=== PATIENT | female | born 1960 | race Caucasian/White ===

== ENCOUNTER 2016-06-04 16:28 | Emergency (ER) | payer MEDICARE, OTHER ==
--- NOTE | 2016-06-04 16:41 | ED Physician Documentation ---
General Adult - HISTORIAN Historian: patient - HPI Stated Complaint: feeding tube came out Chief Complaint: General Adult Onset: minutes Timing: still present Severity: mild Further Comments: yes (Pt is a 55 yo female) - ROS CONST: no problems EYES/ENT: none CVS/RESP: none GI/: other (feeding tube displaced) MS/SKIN/LYMPH: none - PAST HX Past History: other (depression/anxiety; bowel obstruction.) Surgeries/Procedures: other (L femor fx repair; gastric bypass; hysterectomy; feeding tube placement.) Allergies/Adverse Reactions: Allergies Allergy/AdvReac Type Severity Reaction Status Date / Time cefaclor [From Ceclor] Allergy Severe Hives Verified 02/06/13 09:08 Home Medications: Ambulatory Orders Medication Instructions Recorded Pnv95/Ferrous Fumarate/FA 1 each PO DAILY 04/19/12 [ Multivitamins Tablet] - SOCIAL HX Smoking History: cigarettes - FAMILY HX Family History: No - VITAL SIGNS Vital Signs: Vital Signs Temp Pulse Resp BP Pulse Ox 122/86 09/11/15 10:12 - REVIEWED ASSESSMENTS Nursing Assessment Reviewed: Yes Vitals Reviewed: Yes Progress - Progress Progress: feeding tube easily replaced. internal balloon may have been underinflated. General Adult Physical Exam - PHYSICAL EXAM GENERAL APPEARANCE: cachectic EENT: pharynx normal NECK: normal inspection, supple RESPIRATORY: no resp distress CVS: reg rate & rhythm, heart sounds normal ABDOMEN: soft, other (feeding tube) BACK: normal inspection SKIN: warm/dry, normal color EXTREMITIES: non-tender, normal range of motion, no evidence of injury NEURO: oriented X3, motor nml, sensation nml Discharge Clincal Impression: feeding tube displacement, resolved Referrals: Venu Atkinson MD [Primary Care Provider] - Home Medications: Ambulatory Orders Pnv95/Ferrous Fumarate/FA [ Multivitamins Tablet] 1 each PO DAILY Condition: Good Disposition: 04 XFER [facility] Decision to Admit: NO Decision Time: 16:51
[2016-06-04 16:43] VITALS: BP 110/67
== END 2016-06-04 16:45 ==
LOC: ED 16:28
DX: T85.528A Displacement of other gastrointestinal prosthetic devices, implants and grafts, initial encounter (principal); X58.XXXA Exposure to other specified factors, initial encounter; Y93.9 Activity, unspecified; Y99.9 Unspecified external cause status
CPT/HCPCS: 99284

== ENCOUNTER 2017-06-29 15:40 | Outpatient (CLI) | payer OTHER ==
--- NOTE | 2017-06-29 18:20 | Diagnostic Imaging Report ---
SABINA MCNEIL [facility] [address] [facility] [address] [place] [address]. [phone] Report Submission Date: June 29, 2017 4:20:37 PM CDT Patient Study Name: ELEANOR ZAMORA Date: June 29, 2017 3:51:00 PM CDT Modality Type: DX Gender: F Description: PELVIS : 62 Institution: [facility] Physician: SABINA MCNEIL Examination: Plain film pelvis/left hip History: PT C/O LEFT HIP PAIN THAT RADIATES INTO THE LEFT LEG AFTER FALL X 2 MONTHS. PT STATES THAT SHE EXPERIENCES LEFT LEG NUMBNESS AND "TINGLE" SENSATION. PT HAD SURGERY ON HER LEFT HIP 4 MONTHS AGO. (Hx) Comparison exams: None provided Findings: 3 views of the pelvis and left hip demonstrates left hip fixation pinning. Advanced hip articular degenerative changes, left greater than right. No displaced fracture line. Pubic symphysis and lumbar spine degenerative changes. Pelvic phleboliths. Impression: Advanced, left greater than right, hip articular degenerative changes. Left hip fixation pinning. No evidence for displaced fracture. Electronically signed on June 29, 2017 4:20:37 PM CDT by: Brock QUISPE
== END 2017-06-29 15:42 ==
LOC: RAD 15:40
PROVIDERS: ATTEND Family Medicine
DX: M25.552 Pain in left hip (principal)

== ENCOUNTER 2017-08-23 08:02 | Outpatient (CLI) | payer OTHER ==
[2017-08-23] MEDS ORDERED: Lidocaine 1% 5ml(IM or SUTURE)(PAIN CLINIC) ONE (10:15)
[2017-08-23] MEDS ORDERED: TRIAMCINOLONE ACETONID 40MG/ML VIAL ONE (10:15)
[2017-08-23] MEDS ORDERED: BUPIVACAINE HCL/PF 2.5 MG/ML 10ML VIAL IV ONE (10:15)
--- NOTE | 2017-08-26 13:49 | GREATER THROCHANTERIC BURSA IN ---
SUBJECTIVE: I had the opportunity of following up with Livia Miles. This is a very nice 56-year-old white female who I have treated for back pain in the past. She has had some medical problems and now has had an abdominal surgery and now has a PEG tube in place and has had some physical decline. She presents today with her with a chief complaint of left hip pain. She had apparently left hip pinning done for a fracture following a fall about 4 years ago and has had left hip pain ever since. Most recently, the pain has become so severe, she cannot walk. An x-ray image reveals relatively severe osteoarthritis and she says the pain is just lateral over the hip. She cannot lay on that side at night. She has a Tinel's sign. I examine her and she does have a positive VITA but the majority of the symptoms appear to be over the left trochanteric bursa in the area of the hip pinning. X-ray images reveal 3 screws at the greater trochanter and into the femoral neck and into the femoral head. At this point, I am going to place a diagnostic/therapeutic left greater trochanteric bursa injection; and if her symptoms are not improved, we could consider a diagnostic hip joint block. I think ultimately if this were the case , she would require a hip arthroplasty; however, her overall physical condition would be problematic. PROCEDURE: Left greater trochanteric bursa injection with fluoroscopy. DESCRIPTION OF PROCEDURE: The risks and benefits of the procedure were discussed with the patient, including the risk of infection, bleeding, nerve injury. Furthermore, I discussed the risk of steroid exposure causing hyperglycemia, hypertension, osteoporosis, or increased infectious risks. The patient understood the risks and agreed to proceed. Consent was obtained. The patient was positioned positioned prone on the fluoroscopic procedure table and sterile prep and drape were applied. Under AP fluoroscopic imaging, the hip was identified and a Tinel's sign was noted over the screws of the femoral neck; and at this point, a needle was advanced under fluoroscopic guidance with an injection of medication. The needle was removed. This did appear to re- create the patient's symptoms. She otherwise tolerated the procedure well. There were no apparent complications. The patient was monitored for 20 minutes following the procedure, during which time the patient experienced no adverse sequelae. The patient was discharged to home in good condition with a class a truck driver driving the pt. home. ASSESSMENT: 1. Left trochanteric bursitis status post hip pinning and hardware pinning. 2. History of thoracic and lumbar spondylosis. PLAN: Left greater trochanteric bursa injection with fluoroscopy today. FOLLOW UP: Return to clinic if problems develop or worsen. cc: Dr. Venu QUISPE
== END 2017-08-23 08:03 ==
LOC: OUT 08:02
PROVIDERS: ATTEND Anesthesiology Pain Medicine
DX: M70.62 Trochanteric bursitis, left hip (principal); Y93.9 Activity, unspecified
CPT/HCPCS: J3301; J3490; Q9966; 20611; 99213; G0463

== ENCOUNTER 2017-09-26 13:08 | Emergency (ER) | payer OTHER ==
--- NOTE | 2017-09-26 14:15 | ED Physician Documentation ---
Hip Injury/Pain - HPI Stated Complaint: Left hip pain Chief Complaint: Hip Pain Onset: days ago Severity: severe Duration: worse Context: no injury Further Comments: yes (56 year old female patient presents with complaint of left hip pain. Patient denies falling, reports tripping and landing on the couch twice this past week. Patient reports having "injection" with Dr Hutton a few weeks ago with no improvement.) - ROS CONST: recent illness (chronic illness) RESP: denies: shortness of breath, cough non-productive, cough-productive GI/: none EYES/ENT: none MS/SKIN/LYMPH: other (left hip pain; chronic) NEURO/PSYCH: denies: confusion, anxiety, depression - PAST HX Cardiac Disease: none PE Risk Factors: none Other History: other (anxiety; depression, low BMI, chronic left hip pain, gastric ulcer; umbilical hernia) Surgeries/Procedures: other (bariatric surgery; peg tube placement.) Allergies/Adverse Reactions: Allergies Allergy/AdvReac Type Severity Reaction Status Date / Time cefaclor [From Ceclor] Allergy Severe Hives Verified 09/26/17 13:47 - SOCIAL HX Smoking History: cigarettes - FAMILY HX Family History: No - VITAL SIGNS Vital Signs: Vital Signs Temp Pulse Resp BP Pulse Ox 98.6 F 84 16 94/52 96 09/26/17 15:00 09/26/17 15:00 09/26/17 15:00 09/26/17 15:00 09/26/17 15:00 - REVIEWED ASSESSMENTS Nursing Assessment Reviewed: Yes Vitals Reviewed: Yes Progress - Progress Progress: Med review concerning - patient has stopped flexeril, gabapentin, senna, zofran , naproxen, ativan, lasix, and flonase since being discharged from the senior living back in March 2017. concerned patient is suppose to be on gabapentin but not taking her meds correctly. Follow up appointment made with Dr Atkinson 10/03 at 1100. Instructed patient to take medications to office for visit. Reviewed Dr Hutton note from 08/23/17 - appointment made for 10/11/17 at 1200 for re-evaluation. Patient reports she has not felt better since hip injection. Patient medicated with toradol IM, nubain and MOM. Xray with large amount of retained stool which could be increasing pain. Cannot place patient on PO NSAID due to gastric ulcer. Encouraged patient to use Tylenol #[address] Atkinson. ED Results Lab/Radiology - Radiology Radiology Impressions: Examination: Plain film left hip History: PT STATES LT LATERAL HIP PAIN,UNABLE TO BARE WEIGHT X6 MONTHS, Hx OF HIP Sx. . (Hx) Comparison exams: None available for direct review. Findings: 2 views of the hip demonstrates osteopenia. Advanced hip degenerative changes with joint space narrowing and osteophyte formation. Fixation pins. Lumbar and sacroiliac joint degenerative changes. Impression: Advanced articular degenerative changes. No dislocation. Electronically signed on Sep 26, 2017 2:09:29 PM CDT by: Brock Hui - Orders Orders: ED Orders Category Date Time Status LT HIP 2VIEW COMPLETE [RAD] Stat Exams 09/26/17 Completed Ketorolac Tromethamine [Toradol] Med 09/26/17 14:25 Discontinued 30 mg IM NOW ONE Magnesium Hydroxide [Milk of Magnesia] Med 09/26/17 14:25 Discontinued 2,400 mg PO NOW ONE Nalbuphine HCl [Nubain] Med 09/26/17 14:26 Discontinued 10 mg IM NOW ONE Hip Injury/Pain Physical Exam - EXAM General Appearance: mild distress (thin, frail patient sitting in wheelchair) Extremities: no pedal edema, no obvious injury, hip pain on leg movement (left hip), hip tenderness (left). No: shortening of leg, external rotation of leg Respiratory: chest non-tender, breath sounds nml CVS: reg rate & rhythm, heart sounds normal, equal pulses, no murmur, no gallop , no JVD, no friction rub, 24 Abdomen: non-tender, no organomegaly, nml bowel sounds, no distention Skin: warm/dry, pallor Neuro/Psych: oriented x3, neuro grossly intact, mood/affect nml Discharge Clincal Impression: Chronic left hip pain Referrals: Venu Atkinson MD [Primary Care Provider] - 2 Days Additional Instructions: Continue using your lidoderm patches, Tylenol #3 or regular Tylenol for your hip pain. Limit your total Tylenol intake to 4000mg per day in all medications. Appointments: Dr Atkinson 10/03/2017 11:00 Dr Hutton 10/11/2017 12:00 Condition: Stable Disposition: 01 HOME, SELF-CARE Decision to Admit: NO Decision Time: 14:42
[2017-09-26] MEDS ORDERED: KETOROLAC TROMETHAMINE 30 MG/1ML VIAL IM ONE (14:25)
[2017-09-26] MEDS ORDERED: MAGNESIUM HYDROXIDE 400 MG/5 ML 30ML UDC PO ONE (14:25)
[2017-09-26] MEDS ORDERED: NALBUPHINE HCL 10 MG/1 ML IM ONE (14:26)
--- NOTE | 2017-09-26 14:47 | Diagnostic Imaging Report ---
[facility] [address] [facility].[address] [id number] Report Submission Date: Sep 26, 2017 2:09:29 PM CDT Patient Study Name: ELEANOR ZAMOAR Date: Sep 26, 2017 1:32:08 PM CDT Modality Type: DX Gender: F Description: PELVIS : 62 Institution: [facility] Physician: MARCELO MORATAYA (AIR CONDITIONING SERVICE TECHNICIAN) - ER Examination: Plain film left hip History: PT STATES LT LATERAL HIP PAIN,UNABLE TO BARE WEIGHT X6 MONTHS, Hx OF HIP Sx. . (Hx) Comparison exams: None available for direct review. Findings: 2 views of the hip demonstrates osteopenia. Advanced hip degenerative changes with joint space narrowing and osteophyte formation. Fixation pins. Lumbar and sacroiliac joint degenerative changes. Impression: Advanced articular degenerative changes. No dislocation. Electronically signed on Sep 26, 2017 2:09:29 PM CDT by: Brock QUISPE
[2017-09-26 15:02] VITALS: BP 94/52
== END 2017-09-26 15:00 | disposition home or self-care (01) ==
LOC: ED 13:08
DX: M25.552 Pain in left hip (principal); G89.29 Other chronic pain
CPT/HCPCS: 73502; J1885; J2300; 96372

== ENCOUNTER 2017-10-11 11:36 | Outpatient (CLI) | payer OTHER ==
[~2017-10-11 11:36] MED LIST: BUPIVACAINE HCL/PF 2.5 MG/ML 10ML VIAL IV ONE; Lidocaine 1% 5ml(IM or SUTURE)(PAIN CLINIC) ONE; TRIAMCINOLONE ACETONID 40MG/ML VIAL ONE
--- NOTE | 2017-10-16 13:13 | GREATER THROCHANTERIC BURSA IN ---
SUBJECTIVE: Ms. Miles follows up today with return of hip pain. She has trochanteric bursitis secondary to 3 screws in her femoral neck. The screws are causing irritation. I started her on Lidoderm patches which are helping some. I have recommended using a patch on a 24-hour basis. She is requesting I repeat the injection today for trochanteric bursitis, which is recurrent and severe. I discussed hip replacement. I do not think this lady would survive a total hip replacement. Plan for a left greater trochanteric bursa injection with fluoroscopic guidance. PROCEDURE: Left greater trochanteric bursa injection with fluoroscopic guidance. DESCRIPTION OF PROCEDURE: The risks and benefits of the procedure were discussed with the patient, including the risk of infection, bleeding, nerve injury. Furthermore, I discussed the risk of steroid exposure causing hyperglycemia, hypertension, osteoporosis, or increased infectious risks. The patient understood the risks and agreed to proceed. Consent was obtained. The patient was placed in prone position on the fluoroscopy table and the skin overlying the left greater trochanter of the femur was cleaned with an alcohol swab. The trochanter was visualized under AP fluoroscopy. A needle was inserted over the trochanter and advanced until contact with the trochanter. It was verified that there was no aspiration of fluid or blood. The medication was injected. The needle was removed. The patient was monitored for 20 minutes following the procedure, during which time the patient experienced no adverse sequelae. The patient was discharged to home in good condition with a lease purchase driver driving the patient home. ASSESSMENT: Left greater trochanter bursitis. PLAN: Left greater trochanteric bursa injection with fluoroscopic guidance. FOLLOW UP: Return to clinic if problems develop or worsen. cc: Dr. Venu QUISPE
== END 2017-10-11 11:38 ==
LOC: OUT 11:36
PROVIDERS: ATTEND Anesthesiology Pain Medicine
DX: M70.62 Trochanteric bursitis, left hip (principal); Y93.9 Activity, unspecified
CPT/HCPCS: 20611; 99213; G0463; J3301; J3490